=== PATIENT | female | born 1970 | race Hispanic/Latino ===

== ENCOUNTER 2022-02-26 10:13 | Emergency (ER) | payer SELFPAY ==
[~2022-02-26] VITALS: Ht 157.5 cm; Wt 81.0 kg
[2022-02-26] VITALS (8 sets, daily range): BP systolic 185–230; BP diastolic 85–116
[~2022-02-26 10:13] MED LIST: CETIRIZINE10 MG PO; FERROUS SULF325 M1 PO; HYDROCHLOROT25 MG PO; LISINOPRIL20 MG PO; MECLIZINE25 M1 PO; MEVACOR20 MG PO; ULTRAM50 M1 PO; UNK BP MED; [UNRECOGNIZED DRUG - REMARK]
[2022-02-26 11:17] LABS: HEMATOCRIT 46.7 % (37.0-47.0); HEMOGLOBIN 15.4 g/dl (12.0-16.0); IMMATURE GRANULOCYTES 0.4 % (0.0-5.0); MEAN CELL VOLUME 86.2 fL CALC (80.0-100.0); MEAN CORPUSCULAR HGB 28.4 pG CALC (26.0-32.0); NEUT# 4.29 thou/uL (2.00-7.15); RED BLOOD COUNT 5.42 mill/uL (4.20-5.60); RED CELL DISTRI WIDTH 13.4 % (11.5-15.5)
[2022-02-26 11:20] LABS: ALBUMIN 4.2 g/dL (3.2-5.0); ALKALINE PHOSPHATASE 78 u/l (38-126); ANION GAP 14 (6-22 (CALC)); BILIRUBIN, TOTAL 0.4 mg/dL (0.0-1.4); BUN 14 mg/dL (7-17); BUN/CREATININE RATIO 16 (12-20 (CALC)); CARBON DIOXIDE 26 mmol/l (22-30); CHLORIDE 106 mmol/l (95-108); CREATININE 0.9 mg/dL (0.5-1.0); GFR > 60 ML/MIN (>=60 (CALC)); GFR FOR AFR.AMER. > 60 ML/MIN (>=60 (CALC)); POTASSIUM 4.1 mmol/l (3.5-5.1); SGOT/AST 25 u/l (14-36); SODIUM 142 mmol/l (137-146); TOTAL PROTEIN 7.7 g/dL (6.3-8.2)
[2022-02-26] MEDS ORDERED: ZESTRIL10 M1 PO (12:03)
[2022-02-26] MEDS ORDERED: CEPHALEXIN500 M1 PO (12:03)
[2022-02-26] MEDS ORDERED: PREDNISONE50 MG PO (12:03)
[2022-02-26] MEDS ORDERED: ALLERGY RELF10 M3 PO (12:03)
[2022-02-26] MEDS ORDERED: AMLODIPINE BESY10 MG PO (12:03)
== END 2022-02-26 12:36 | disposition home or self-care (01) | DRG 918 ==
LOC: ED 10:13
PROVIDERS: Family Medicine
DX: T63.461A Toxic effect of venom of wasps, accidental (unintentional), initial encounter (principal); H00.034 Abscess of left upper eyelid; I10 Essential (primary) hypertension; T46.5X6A Underdosing of other antihypertensive drugs, initial encounter; Z91.128 Patient's intentional underdosing of medication regimen for other reason

== ENCOUNTER 2024-06-15 22:34 | Emergency (ER) | payer SELFPAY ==
[~2024-06-15] VITALS: Ht 162.6 cm; Wt 77.0 kg
[~2024-06-15 22:34] MED LIST changes: +ALLERGY RELF10 M3 PO; +AMLODIPINE BESY10 MG PO; +CEPHALEXIN500 M1 PO; +PREDNISONE50 MG PO; +ZESTRIL10 M1 PO
[2024-06-15] MEDS ORDERED: SODIUM CHLORIDE 0.9% 1,000 ML IV ONE (23:40)
[2024-06-15] MEDS ORDERED: hydrALAZINE HCL 20 MG/ML VIAL(1 ML) IV ONE (23:40)
[2024-06-15] MEDS ORDERED: KETOROLAC TROMETHAMINE 30 MG/ML SDV IV ONE (23:40)
[2024-06-15] MEDS ORDERED: ONDANSETRON HCl 4 MG/2 ML SDV IV ONE (23:40)
[2024-06-16 00:35] LABS: BASO% 0.3 % (0-3); EOS% 1.2 % (0-8); HEMATOCRIT 40.9 % (37.0-47.0); HEMOGLOBIN 13.9 g/dl (12.0-16.0); IMMATURE GRANULOCYTES 0.2 % (0.0-5.0); LYMPH% 24.4 % (15-41); MEAN CELL VOLUME 85.2 fL CALC (80.0-100.0); MONO% 6.8 % (2-13); NEUT# 6.38 thou/uL (2.00-7.15); NEUT% 67.1 % (42-76); RED BLOOD COUNT 4.8 mill/uL (4.20-5.60); RED CELL DISTRI WIDTH 12.9 % (11.5-15.5)
[2024-06-16 00:43] LABS: URINE BLOOD DIPSTICK Large (NEGATIVE); URINE COLOR Red; URINE GLUCOSE - DIPSTICK Negative (NEGATIVE); URINE KETONE Trace mg/dL (NEGATIVE); URINE LEUK ESTERASE Large (NEGATIVE); URINE NITRITE - DIPSTICK Negative (Negative); URINE PROTEIN - DIPSTICK >=300 mg/dL (NEG-TRACE); URINE SPECIFIC GRAVITY 1.015; URINE UROBILINOGEN - DIPSTICK 0.2 E.U./dL (0.2)
[2024-06-16 00:48] LABS: CREATININE 0.9 mg/dL (0.5-1.0); POTASSIUM 3.6 mmol/l (3.5-5.1)
[2024-06-16 01:01] LABS: URINE BACTERIA MODERATE hpf; URINE MUCUS FEW hpf (NONE-FEW); URINE RBC >100 RBC/hpf (0-5); URINE SQUAMOUS EPITHELIAL CELL FEW EPI/hpf (0-FEW)
[2024-06-16] MEDS ORDERED: MORPHINE SULFATE 4 MG/ML VIAL IV ONE (01:15)
[2024-06-16] MEDS ORDERED: ONDANSETRON HCl 4 MG/2 ML SDV IV ONE (01:15)
[2024-06-16] MEDS ORDERED: ONDANSETRON4 MG PO (02:20)
[2024-06-16] MEDS ORDERED: TYLENOL # 31 TA1 PO (02:20)
[2024-06-16] MEDS ORDERED: AMLODIPINE BESY10 MG PO (02:36)
[2024-06-16 02:44] VITALS: BP 152/82
== END 2024-06-16 02:44 | disposition home or self-care (01) | DRG 700 ==
LOC: ED 22:34
PROVIDERS: Family Medicine
DX: N28.89 Other specified disorders of kidney and ureter (principal); N32.89 Other specified disorders of bladder; I10 Essential (primary) hypertension